=== PATIENT | female | born 1985 | race Caucasian/White ===

== ENCOUNTER 2020-11-20 11:51 | Emergency (ER) | payer OTHER ==
[~2020-11-20] VITALS: Ht 157.5 cm; Wt 49.4 kg
[2020-11-20] MEDS ORDERED: PRENA1 TRUE CO1 EACH (12:05)
[2020-11-20] MEDS ORDERED: VITAMIN D310 MCG/1 M (12:06)
[2020-11-20] MEDS ORDERED: PROBIOTIC1 EAC2 (12:06)
[2020-11-20] MEDS ORDERED: VITAMIN C500 MG (12:06)
== END 2020-11-20 18:09 | disposition home or self-care (01) ==
LOC: ER 11:51
DX: O26.851 Spotting complicating pregnancy, first trimester (principal); O36.80X1 Pregnancy with inconclusive fetal viability, fetus 1; Z3A.10 10 weeks gestation of pregnancy